=== PATIENT | female | born 1985 | race African-American/Black ===

== ENCOUNTER 2019-02-19 07:45 | Emergency (ER) | payer SELFPAY ==
[~2019-02-19] VITALS: Ht 144.8 cm; Wt 45.4 kg
[2019-02-19] MEDS ORDERED: ALBUTEROL SULFATE (07:56)
[2019-02-19] MEDS ORDERED: ALBUTEROL SULFATE 2.5 MG/3 ML NEBU NEB ONE (08:00)
[2019-02-19] MEDS ORDERED: IPRATROPIUM BROMIDE 0.5 MG/2.5 ML NEBU NEB ONE (08:00)
[2019-02-19] MEDS ORDERED: predniSONE 20 MG TABLET PO ONE (08:00)
[2019-02-19] MEDS ORDERED: IPRATROPIUM BROMIDE 0.5 MG/2.5 ML NEBU ONE (08:08)
[2019-02-19] MEDS ORDERED: ALBUTEROL SULFATE 2.5 MG/3 ML NEBU ONE (08:08)
[2019-02-19] MEDS ORDERED: predniSONE 50 MG TABLET ONE (08:12)
[2019-02-19] MEDS ORDERED: predniSONE 10 MG TABLET ONE (08:12)
[2019-02-19 08:33] VITALS: BP 121/89
--- NOTE | 2019-02-19 08:33 | NUR ---
Patient discharged to home in stable conditon. Written and verbal after care instructions given. Patient verbalizes understanding of instructions.PT WALKS I NSTEADY GAIT. PT SAYS FEELS BETTER, DNEIS ANY SOB.
== END 2019-02-19 08:37 | disposition home or self-care (01) ==
LOC: ER 07:45
DX: J98.01 Acute bronchospasm (principal); J45.909 Unspecified asthma, uncomplicated; Z79.899 Other long term (current) drug therapy
CPT/HCPCS: 94640; 99283; J7512 ×2; A4663; J3590